=== PATIENT | male | born 1990 | race Caucasian/White ===

== ENCOUNTER 2017-03-31 17:39 | Emergency (ER) | payer SELFPAY ==
[~2017-03-31] VITALS: Ht 182.9 cm; Wt 129.3 kg
[2017-03-31 18:00] VITALS: BP 139/90
--- NOTE | 2017-03-31 18:01 | NUR ---
PT SENT TO LOBBY TO WAIT FOR BED OR OVERFLOW CHAIR.
--- NOTE | 2017-03-31 19:23 | NUR ---
Patient ambulated to bed OF2. RN evaluating patient.
--- NOTE | 2017-03-31 21:03 | NUR ---
PATIENT PRESENTS TO ED WITH THROAT PAIN . PT STATES HE HAS SWELLING AND PAIN OF THROAT X3 DAYS . DENIES N/V/D; SKIN IS PINK/WARM/DRY; AAOX4 WITH EVEN AND STEADY GAIT; LUNGS CLEAR BL; HR EVEN AND REGULAR; PT DENIES ANY FEVER, CP, SOB, OR COUGH AT THIS TIME; PATIENT STATES PAIN OF 5/10 AT THIS TIME; VSS; PATIENT POSITIONED FOR COMFORT; HOB ELEVATED; BEDRAILS UP X2; BED DOWN. ER MD MADE AWARE OF PT STATUS.
[2017-03-31 22:07] VITALS: BP 130/90
== END 2017-03-31 22:07 | disposition home or self-care (01) ==
LOC: MED 17:39
DX: J02.9 Acute pharyngitis, unspecified (principal); Z88.1 Allergy status to other antibiotic agents
CPT/HCPCS: 70360; 70490; 99284